=== PATIENT | female | born 1995 | race African-American/Black ===

== ENCOUNTER 2022-03-16 11:35 | Emergency (ER) | payer BC ==
[2022-03-16 11:40] VITALS: BP 111/68; PULSE 108; RESP 20; TEMP 98.1; BMI 20.9
== END 2022-03-16 12:29 | disposition home or self-care (01) ==
LOC: JERFT 11:35
DX: K04.7 Periapical abscess without sinus (principal)
CPT/HCPCS: 99283-25

== ENCOUNTER 2023-02-23 03:26 | Emergency (ER) | payer BC, OTHER ==
[2023-02-23 03:36] VITALS: RESP 18; TEMP 98; BMI 20.7
[2023-02-23] MEDS ORDERED: SODIUM CHLORIDE 0.9% 500 ML INFUS.BAG IV ONE (04:20)
[2023-02-23] MEDS ORDERED: ONDANSETRON 4 MG/2 ML VIAL IVPUSH ONE ×2 (04:20→09:08)
[2023-02-23] MEDS ORDERED: ACETAMINOPHEN 1000 MG/100 ML BAG IVPB ONE (04:20)
[2023-02-23] MEDS ORDERED: ACETAMINOPHEN INJECTION 100 ML IVPB ONE (04:31)
[2023-02-23] MEDS ORDERED: ONDANSETRON 4 MG/2 ML VIAL ONE ×2 (04:41→08:44)
[2023-02-23 04:43] LABS: EPI CELLS 24 /uL (0-25.1); HYALINE CASTS 13 /uL (0-3.1); URINE APPEARANCE CLEAR; URINE BACTERIA 242 /uL (0-1359); URINE BILIRUBIN NEGATIVE (NEGATIVE); URINE COLOR DK YELLOW; URINE GLUCOSE (UA) NEGATIVE (NEGATIVE); URINE KETONE TRACE (NEGATIVE); URINE LEUK ESTERASE 1+ (NEGATIVE); URINE NITRITE NEGATIVE (NEGATIVE); URINE PROTEIN 2+ (NEGATIVE); URINE RBC 9 /uL (0-23.9); URINE WBC 151 /uL (0-25.8)
[2023-02-23 05:38] LABS: BASO % 0.6 % (0-2.0); EOS % 0.3 % (0-4.5); HEMATOCRIT 38.8 % (32.4-45.2); HEMOGLOBIN 13.3 GM/dL (10.7-15.3); LYMPH % 27.9 % (8-40); MCHC 34.3 g/dl (32.0-36.0); MEAN CELL VOLUME 87.4 fl (80-96); MEAN PLT VOLUME 8.8 fl (7.5-11.1); MONO % 6.5 % (3.8-10.2); NEUT % 64.7 % (42.8-82.8); PLATELET COUNT 330 10^3/uL (134-434); RBC 4.45 M/mm3 (3.60-5.2); RDW 14.5 % (11.6-15.6); WHITE BLOOD COUNT 8.1 K/mm3 (4.0-10.0)
[2023-02-23 06:14] LABS: ACTIVATED PTT 24.9 SECONDS (25.2-36.5)
[2023-02-23 06:19] LABS: POTASSIUM 4.1 mmol/L (3.5-5.1)
[2023-02-23 06:21] LABS: ALBUMIN 4.5 g/dl (3.4-5.0); BLOOD UREA NITROGEN 11.4 mg/dL (7-18); CALCIUM 8.9 mg/dL (8.5-10.1)
[2023-02-23 06:24] LABS: CREATININE 0.9 mg/dL (0.55-1.3); INR 1.13 (0.83-1.09); PROTHROMBIN TIME (PATIENT) 13.1 SEC (9.7-13.0)
[2023-02-23 06:26] LABS: TOT PROT 8.3 g/dl (6.4-8.2)
[2023-02-23] MEDS ORDERED: CEFTRIAXONE 1,000 MG in DEXTROSE 5%-WATER - 50 ML IVPB ONE (08:05)
[2023-02-23] MEDS ORDERED: CEFTRIAXONE 1 GM/50 ML BAG ONE (08:44)
[2023-02-23] MEDS ORDERED: SODIUM CHLORIDE 1,000 ML IV STA (09:08)
[2023-02-23 10:44] VITALS: BP 123/81; PULSE 62
== END 2023-02-23 11:41 | disposition home or self-care (01) ==
LOC: JER 03:26
PROC: 3E03329 Introduction of Other Anti-infective into Peripheral Vein, Percutaneous Approach (ICD-10-PCS; principal; 2023-02-23)
PROC: 3E033NZ Introduction of Analgesics, Hypnotics, Sedatives into Peripheral Vein, Percutaneous Approach (ICD-10-PCS; 2023-02-23)
PROC: 3E033GC Introduction of Other Therapeutic Substance into Peripheral Vein, Percutaneous Approach (ICD-10-PCS; 2023-02-23)
PROC: 3E033GC Introduction of Other Therapeutic Substance into Peripheral Vein, Percutaneous Approach (ICD-10-PCS; 2023-02-23)
PROC: 3E0337Z Introduction of Electrolytic and Water Balance Substance into Peripheral Vein, Percutaneous Approach (ICD-10-PCS; 2023-02-23)
DX: R53.81 Other malaise (principal); R10.30 Lower abdominal pain, unspecified; R68.83 Chills (without fever); R11.2 Nausea with vomiting, unspecified; N93.9 Abnormal uterine and vaginal bleeding, unspecified; O72.2 Delayed and secondary postpartum hemorrhage; N39.0 Urinary tract infection, site not specified; Z20.822 Contact with and (suspected) exposure to COVID-19
CPT/HCPCS: 0241U-QW; 36415; 71046-TC-FY; 76830-TC; 80053; 81003; 84702; 85025; 85610; 85730; 86850; 86900; 86901; 87086